=== PATIENT | male | born 1955 | race Caucasian/White ===

== ENCOUNTER → 2016-06-27 | Outpatient (CLI) | payer OTHER ==
[~2016-06-27] MED LIST: /ONDA4TA; PERC5TAB8; PRIL40CA
--- NOTE | 2016-06-27 16:04 | REP ---
LOW DOSE LUNG CT: Low dose helical CT scan of the lungs is performed in this patient with a history of smoking. Mild diffuse interstitial fibrosis is present throughout both lungs. There is a tiny 3 mm nodular opacity peripherally in the right middle lobe on image number 65. No other suspicious nodular opacities are seen. There is no pleural effusion bilaterally. The heart is not enlarged and I see no pericardiac effusion. There is no there other evidence of mass. IMPRESSION: This is a category [address] of the lungs. There is a 3 mm nodular opacity in the right middle lobe. Recommend followup CT in 12 months. Signed by Daniel Ballesteros MD 06/28/2016 09:41 A
== END ==
LOC: M RAD 15:00
PROVIDERS: ATTEND Internal Medicine
DX: Z12.2 Encounter for screening for malignant neoplasm of respiratory organs (principal); R91.8 Other nonspecific abnormal finding of lung field; F17.200 Nicotine dependence, unspecified, uncomplicated

== ENCOUNTER → 2017-08-11 | Outpatient (CLI) | payer OTHER | LOC: M RAD 07:10 | DX: R91.1 Solitary pulmonary nodule (principal); J44.9 Chronic obstructive pulmonary disease, unspecified | CPT/HCPCS: 71250 ==

== ENCOUNTER → 2017-09-18 | Outpatient (CLI) | payer OTHER | LOC: M RAD 06:54 | DX: R10.11 Right upper quadrant pain (principal) | CPT/HCPCS: 74181 ==

== ENCOUNTER → 2018-07-18 | Outpatient (CLI) | payer OTHER ==
[~2018-07-18] MED LIST changes: -/ONDA4TA; +ONDA-1
--- NOTE | 2018-07-18 09:45 | REP ---
CT chest without contrast: History: Abnormal lung field findings on imaging. Comparison chest CT study August 11, 2017 and June 27, 2016. Comparison studies have shown a 3 mm right middle lobe nodule. Findings: There has been no change in the interval since the June 27, [address] study in the right middle lobe 3 mm noncalcified nodule. This can be considered benign. The lungs remain hyperinflated with emphysematous changes in the apices. No other pulmonary nodule is appreciated. No infiltrate or atelectasis is seen. No pleural or pericardial effusion is seen. Vascular calcification is noted. No adenopathy is seen. There are clips in the gallbladder fossa post cholecystectomy. Small quantity of pneumobilia is present. Visualized upper abdominal structures are otherwise unremarkable. No bony destructive lesion is seen. Impression: 2 years of stability have been documented in the 3 mm nodule in the right middle lobe. This can be considered benign. It does not warrant further radiographic follow-up. However, the patient's risk factors may place him in a category qualifying for annual low-dose screening chest CT in 12 months. Electronically Signed by Pavan Dela Cruz MD 07/18/2018 11:28 A
== END ==
LOC: M RAD 08:05
PROVIDERS: ATTEND Pediatrics
DX: R91.8 Other nonspecific abnormal finding of lung field (principal)